=== PATIENT | female | born 1990 | race African-American/Black ===

== ENCOUNTER 2021-12-26 20:59 | Inpatient (IN) ==
[2021-12-26] MEDS ORDERED: OXYTOCIN/LR 20 UNIT/1,000 ML BAG IV PRN (22:17)
[2021-12-26] MEDS ORDERED: MEPERIDINE 50 MG/1 ML VIAL IV PRN (22:17)
[2021-12-26] MEDS ORDERED: BUTORPHANOL 2 MG/ML VIAL IV PRN (22:17)
[2021-12-26] MEDS ORDERED: ONDANSETRON 4 MG/2 ML VIAL IV PRN (22:17)
[2021-12-26] MEDS: LACTATED RINGERS 1,000 ML IV PRN (22:50)
[2021-12-26 22:58] LABS: Basophils % 0.3 % (0.0-0.8); Eosinophils # 0.2 10*3/uL (0.0-0.87); Hematocrit 36.1 VOL% (35.7-47.0); Hemoglobin 11.6 GM/DL (12.0-16.0); Immature Granulocytes % 0.7 %; Immature Granulocytes Absolute 0.05 #; Lymphocytes # 1.6 10*3/uL (1.4-4.0); Lymphocytes % 21.3 % (21.3-54.2); Mean Corpuscular HGB Conc 32.1 GM/DL (32-36); Mean Corpuscular Volume 83.2 FL (87-102); Mean Platelet Volume 11.5 FL (9.6-12.0); Monocytes % 10.3 % (1.7-12.7); Neutrophils % 65.4 % (38.7-73.9); Platelet Count 221 T/CUMM (130-400); Red Blood Count 4.34 MC/CUMM (3.8-5.5); Red Cell Distribution Width 15.6 % (9.3-17.3); White Blood Count 7.7 T/CUMM (4-12)
[2021-12-26] MEDS: AMPICILLIN INJ 2,000 MG in SODIUM CHLORIDE 0.9% 100 ML IV SCH (23:30)
[2021-12-26] MEDS: hydrALAZINE 20 MG/1 ML VIAL IV PRN (23:31)
[2021-12-26] MEDS: LABETALOL 100 MG TABLET PO SCH (23:42)
[2021-12-27] MEDS ORDERED: AMPICILLIN INJ 2,000 MG in SODIUM CHLORIDE 0.9% 100 ML IV SCH
[2021-12-27 00:23] LABS: Alanine Aminotransferase 13 U/L (13-56); Albumin 2.4 G/DL (3.4-5.0); Alkaline Phosphatase 156 U/L (45-117); Aspartate Amino Transferase 18 U/L (0-37); Bilirubin,Total < 0.39 MG/DL (0.20-1.00); Blood Urea Nitrogen 15 MG/DL (7-18); Calcium 9.2 MG/DL (8.5-10.1); Carbon Dioxide 25 MMOL/L (21-32); Estimated Glom Filtration Rate 124 ML/MIN; Glucose 103 MG/DL (74-106); Osmolality,Calculated 275.7 MOS/KG (273-304); Potassium 3.9 MMOL/L (3.5-5.1); Sodium 138 MMOL/L (136-145); Total Protein 7.3 G/DL (6.4-8.2)
[2021-12-27 00:52] LABS: INR 0.9; PT Patient Result 9.7 SECS (10.5-12.0)
[2021-12-27] MEDS ORDERED: NALOXONE 0.4 MG/ML VIAL IV PRN (03:38)
[2021-12-27] MEDS ORDERED: PROMETHAZINE 25 MG/1 ML VIAL IM PRN (03:38)
[2021-12-27] MEDS ORDERED: hydrOXYzine HCL 25 MG/1 ML VIAL IM PRN (03:38)
[2021-12-27] MEDS ORDERED: diphenhydrAMINE 50 MG/1 ML VIAL IV PRN ×2 (03:38)
[2021-12-27] MEDS ORDERED: CITRIC ACID/SODIUM CITRATE 30 ML UDCUP PO PRN (03:40)
[2021-12-27] MEDS ORDERED: FAMOTIDINE 20 MG/2 ML VIAL IV PRN (03:40)
[2021-12-27 03:48] LABS: Hyaline Casts,Urine 10 /LPF (0-3); Mucus,Urine Few /LPF (Occasional); RBC,Urine 4 /HPF (0-4); Squamous Epithelial Cell,Urine Occasional /HPF (0-10)
[2021-12-27 03:49] LABS: Bilirubin,Urine Negative (Negative); Glucose,Urine (UA) Negative (Negative); Ketones,Urine TR mg/dL (Negative); Nitrite,Urine Negative (Negative); Protein,Urine >=300 mg/dL (Negative); Urine Appearance Clear (Clear); Urine Color Yellow (Yellow); Urine Specific Gravity >= 1.030 (1.001-1.035); Urine pH 5.5 (4.5-8.0)
[2021-12-27 03:50] LABS: Blood, Urine Small mg/dL (Negative); Urine Urobilinogen 0.2 eU/dL (<2.0)
[2021-12-27] MEDS ORDERED: fentaNYL 2 MCG/ROPIV 0.2% EPID 100 ML EPIDURAL SCH (04:00)
[2021-12-27] MEDS: LACTATED RINGERS 1,000 ML IV PRN ×3 (04:05→13:40)
[2021-12-27 04:07] LABS: Protein/Creatinine Ratio,Urine 0.9 RATIO
[2021-12-27] MEDS: hydrALAZINE 20 MG/1 ML VIAL IV PRN ×2 (04:30→04:57)
[2021-12-27] MEDS: AMPICILLIN INJ 2,000 MG in SODIUM CHLORIDE 0.9% 100 ML IV SCH ×2 (05:31→11:40)
[2021-12-27] MEDS: ePHEDrine 50 MG/ML VIAL IV PRN ×3 (08:40→09:55)
[2021-12-27 09:21] LABS: Bacteria,Urine Occasional /HPF (Few); Mucus,Urine Few /LPF (Occasional); RBC,Urine 2 /HPF (0-4); Squamous Epithelial Cell,Urine Occasional /HPF (0-10)
[2021-12-27 09:23] LABS: Bilirubin,Urine Small mg/dL (Negative); Blood, Urine Trace mg/dL (Negative); Glucose,Urine (UA) Negative (Negative); Ketones,Urine Negative (Negative); Nitrite,Urine Negative (Negative); Protein,Urine 3+ mg/dL (Negative); Urine Appearance Slightly Cloudy (Clear); Urine Color Yellow (Yellow); Urine Specific Gravity 1.033 (1.001-1.035); Urine Urobilinogen 0.2 eU/dL (<2.0); Urine pH 5.5 (4.5-8.0)
[2021-12-27] MEDS: LABETALOL 100 MG TABLET PO SCH ×2 (09:57→20:59)
[2021-12-27] MEDS ORDERED: miSOPROStoL 200 MCG TABLET ONE (14:21)
[2021-12-27] MEDS ORDERED: CARBOPROST TROMETHAMINE 250 MCG/ML AMP IM ONE (14:22)
[2021-12-27] MEDS ORDERED: TRANEXAMIC ACID 1,000 MG/10 ML VIAL ONE (14:22)
[2021-12-27] MEDS ORDERED: SODIUM CHLORIDE 0.9% 0 ML IV ONE (14:22)
[2021-12-27] MEDS ORDERED: METHYLERGONOVINE 0.2 MG/1 ML AMP ONE (14:22)
[2021-12-27 14:43] LABS: Cord Arterial Blood HCO3 17.5 MMOL/L
[2021-12-27 14:45] LABS: Cord Venous Blood HCO3 18.9 MMOL/L; Cord Venous Blood PCO2 64.8 MMHG; Cord Venous Blood PO2 < 17
[2021-12-27] MEDS ORDERED: OXYTOCIN/LR 20 UNIT/1,000 ML BAG IV ONE ×2 (17:34→18:02)
[2021-12-27] MEDS ORDERED: RHO(D) IMMUNE GLOBULIN 300 MCG SYRINGE IM ONE (18:02)
[2021-12-27] MEDS ORDERED: HYDROCORTISONE 2.5% RECTAL CREAM 30 GM TUBE TOP PRN (18:02)
[2021-12-27] MEDS ORDERED: ACETAMINOPHEN 325 MG TABLET PO PRN (18:02)
[2021-12-27] MEDS ORDERED: MEASLES/MUMPS/RUBELLA VACCINE 0.5 ML VIAL SUBCUT ONE (18:02)
[2021-12-27] MEDS ORDERED: ONDANSETRON 4 MG/2 ML VIAL IV PRN (18:02)
[2021-12-27] MEDS ORDERED: oxyCODONE/ACETAMINOPHEN 5-325 MG TABLET PO PRN ×2 (18:02)
[2021-12-27] MEDS ORDERED: BISACODYL 10 MG SUPP RECTAL PRN (18:02)
[2021-12-27] MEDS ORDERED: WITCH HAZEL PADS 100/JAR TOP PRN (18:02)
[2021-12-27] MEDS ORDERED: LANOLIN 50% CREAM 0.3 OZ TUBE TOP PRN (18:02)
[2021-12-27] MEDS ORDERED: BENZOCAINE 20%/MENTHOL 0.5% SPRAY 56 GM CAN TOP PRN (18:02)
[2021-12-27] MEDS ORDERED: DIPH/TET/ACEL PERT BOOSTER VACCINE 0.5 ML VIAL IM ONE (18:02)
[2021-12-27] MEDS ORDERED: IBUPROFEN 800 MG TABLET PO PRN (18:02)
[2021-12-27] MEDS: DOCUSATE SODIUM 100 MG CAPSULE PO SCH (20:59)
[2021-12-27] MEDS ORDERED: ACETAMINOPHEN/CODEINE 300-30 MG TABLET PO PRN (22:08)
[2021-12-27] MEDS: ACETAMINOPHEN/CODEINE 300-30 MG TABLET PO PRN (22:14)
[2021-12-28 06:00] LABS: Basophils % 0.2 % (0.0-0.8); Eosinophils # 0.1 10*3/uL (0.0-0.87); Eosinophils % 0.9 % (0.00-10.9); Hematocrit 31.3 VOL% (35.7-47.0); Hemoglobin 9.9 GM/DL (12.0-16.0); Immature Granulocytes % 0.5 %; Immature Granulocytes Absolute 0.06 #; Lymphocytes # 2.1 10*3/uL (1.4-4.0); Lymphocytes % 17.8 % (21.3-54.2); Mean Corpuscular HGB Conc 31.6 GM/DL (32-36); Mean Corpuscular Volume 83.5 FL (87-102); Mean Platelet Volume 11.3 FL (9.6-12.0); Monocytes % 9.9 % (1.7-12.7); Neutrophils % 70.7 % (38.7-73.9); Platelet Count 199 T/CUMM (130-400); Red Blood Count 3.75 MC/CUMM (3.8-5.5); Red Cell Distribution Width 15.9 % (9.3-17.3); White Blood Count 11.7 T/CUMM (4-12)
[2021-12-28] MEDS ORDERED: INFLUENZA VIRUS VACCINE 0.5 ML SYRINGE IM ONE (09:00)
[2021-12-28] MEDS: LABETALOL 100 MG TABLET PO SCH ×2 (09:23→20:14)
[2021-12-28] MEDS: DOCUSATE SODIUM 100 MG CAPSULE PO SCH ×2 (09:23→20:14)
[2021-12-28] MEDS: ACETAMINOPHEN/CODEINE 300-30 MG TABLET PO PRN (12:40)
[2021-12-28] MEDS ORDERED: IBUPROFEN 100 MG/5 ML UDCUP PO PRN (20:02)
[2021-12-28] MEDS ORDERED: MAGNESIUM HYDROXIDE SUSP 30 ML UDCUP PO PRN (21:01)
[2021-12-28] MEDS ORDERED: SIMETHICONE CHEW 80 MG TABLET PO PRN (21:01)
[2021-12-28] MEDS ORDERED: POLYETHYLENE GLYCOL POWDER 17 GM PACK PO PRN (21:22)
[2021-12-29 07:16] VITALS: BP 136/85
[2021-12-29] MEDS: LABETALOL 100 MG TABLET PO SCH (09:28)
[2021-12-29] MEDS: DOCUSATE SODIUM 100 MG CAPSULE PO SCH (09:28)
== END 2021-12-29 13:30 | disposition home or self-care (01) | DRG 807 ==
LOC: N.LDOUT 20:59 → N.LD 21:14 → N.OB 12-27 18:00
PROVIDERS: ADMIT Specialist; ATTEND Specialist